=== PATIENT | male | born 1940 | race Caucasian/White ===

== ENCOUNTER 2016-12-21 15:29 | Emergency (ER) | payer OTHER, BC ==
[~2016-12-21] VITALS: Ht 180.3 cm; Wt 91.0 kg
[~2016-12-21 15:29] MED LIST: ADVAIR 250/501 DISK IH; ASPIRIN325 MG PO; CLARITIN10 M3 PO; DAILY VALUE1 EACH PO; FLOMAX0.4 MG PO; LEXAPRO10 MG PO; LIPITOR80 MG PO; METOPROLOL TART50 MG PO; NEXIUM20 MG PO; NIASPAN,SLO-NI750 MG PO; NORCO 5/3251 TABLET PO; SPIRIVA1 INHALATI IH; VALIUM5 MG PO
[2016-12-21 18:28] VITALS: BP 115/64
== END 2016-12-21 18:29 | disposition home or self-care (01) ==
LOC: EME 15:29
DX: S20.219A Contusion of unspecified front wall of thorax, initial encounter (principal); M54.5 Low back pain; W11.XXXA Fall on and from ladder, initial encounter; J44.9 Chronic obstructive pulmonary disease, unspecified; I10 Essential (primary) hypertension; I25.2 Old myocardial infarction; Z95.5 Presence of coronary angioplasty implant and graft; Z95.1 Presence of aortocoronary bypass graft; Z79.82 Long term (current) use of aspirin
CPT/HCPCS: 70450; 71100; 99281; 99284

== ENCOUNTER 2017-06-01 09:01 | Emergency (ER) | payer OTHER ==
[~2017-06-01] VITALS: Ht 177.8 cm; Wt 90.7 kg
[2017-06-01 09:28] LABS: HEMOGLOBIN 14.5 G/DL (12.5-16.6); MCH 29.2 PG (29.0-34.0); MCHC 33.7 G/DL (30.0-36.0); MCV 86.7 FL (86-99); PLATELET COUNT 291 K/uL (156-360); RBC DIS.WIDTH-CV 13.3 % (11.8-14.6); RBC DIS.WIDTH-SD 41.8 % (39-53); RED BLOOD COUNT 4.96 M/uL (4.00-5.50); WHITE BLOOD COUNT 14.7 K/uL (4.1-10.2)
[2017-06-01 09:43] LABS: CHLORIDE 97 mEq/L (99-109); POTASSIUM 4.3 mEq/L (3.7-5.4); SODIUM 136 mEq/L (136-147)
[2017-06-01 09:45] LABS: GLUCOSE 147 mg/dL (70-99)
[2017-06-01 09:49] LABS: CREATININE 0.9 mg/dL (0.6-1.3); GFR ESTIMATE (CALCULATED) > 59 mL/min/ (58.99-99999); UREA NITROGEN (BUN) 15 mg/dL (9-23)
[2017-06-01] MEDS ORDERED: PREDNISONE20 MG PO (14:00)
[2017-06-01] MEDS ORDERED: VALACYCLOVIR1000 MG PO (14:00)
[2017-06-01 14:07] VITALS: BP 128/72
== END 2017-06-01 14:09 | disposition home or self-care (01) ==
LOC: EME 09:01
DX: B02.9 Zoster without complications (principal); J44.1 Chronic obstructive pulmonary disease with (acute) exacerbation; R10.9 Unspecified abdominal pain; Z95.1 Presence of aortocoronary bypass graft; Z79.82 Long term (current) use of aspirin; Z87.891 Personal history of nicotine dependence
CPT/HCPCS: 71046; 80048; 85027; 94640; 99281; 99284; J7512

== ENCOUNTER 2017-12-05 11:46 | Emergency (ER) | payer OTHER ==
[~2017-12-05] VITALS: Ht 180.3 cm; Wt 89.9 kg
[~2017-12-05 11:46] MED LIST changes: +PREDNISONE20 MG PO; +VALACYCLOVIR1000 MG PO
[2017-12-05 12:50] LABS: HEMATOCRIT 40.6 % (38.0-50.0); MCHC 34.5 G/DL (30.0-36.0); MCV 87.1 FL (86-99); PLATELET COUNT 148 K/uL (156-360); RBC DIS.WIDTH-CV 13.8 % (11.8-14.6); RBC DIS.WIDTH-SD 43.9 % (39-53); RED BLOOD COUNT 4.66 M/uL (4.00-5.50); WHITE BLOOD COUNT 13.9 K/uL (4.1-10.2)
[2017-12-05 13:03] LABS: CHLORIDE 107 mEq/L (99-109); POTASSIUM 3.6 mEq/L (3.7-5.4); SODIUM 140 mEq/L (136-147)
[2017-12-05 13:05] LABS: GLUCOSE 125 mg/dL (70-99)
[2017-12-05 13:08] LABS: GFR ESTIMATE (CALCULATED) > 59 mL/min/ (58.99-99999)
[2017-12-05 13:09] LABS: UREA NITROGEN (BUN) 12 mg/dL (9-23)
[2017-12-05 15:08] VITALS: BP 103/42
== END 2017-12-05 15:14 | disposition home or self-care (01) ==
LOC: EME 11:46
DX: R19.7 Diarrhea, unspecified (principal); J43.9 Emphysema, unspecified; Z79.51 Long term (current) use of inhaled steroids; Z79.82 Long term (current) use of aspirin; Z95.1 Presence of aortocoronary bypass graft; Z87.891 Personal history of nicotine dependence
CPT/HCPCS: 80048; 85027; 86850; 86900; 86901; 99281; 99284